=== PATIENT | male | born 1970 ===

== ENCOUNTER 2018-03-25 08:14 | Outpatient (CLI) | payer OTHER ==
[~2018-03-25] VITALS: Ht 180.3 cm; Wt 136.1 kg
== END 2018-03-25 10:04 | disposition home or self-care (01) ==
LOC: OFIC 805 08:14
DX: J32.8 Other chronic sinusitis (principal); R09.81 Nasal congestion; J30.89 Other allergic rhinitis; R05 Cough

== ENCOUNTER 2021-10-20 11:16 | Outpatient (CLI) | payer OTHER | END 2021-10-20 11:22 | disposition home or self-care (01) | LOC: RAD 11:16 | PROVIDERS: ATTEND Surgery | DX: R19.4 Change in bowel habit (principal); C18.2 Malignant neoplasm of ascending colon ==

== ENCOUNTER → 2021-10-21 11:52 | Outpatient (CLI) | payer OTHER | END | disposition home or self-care (01) | LOC: LAB 11:52 | PROVIDERS: ATTEND Radiology Diagnostic Radiology | DX: C18.2 Malignant neoplasm of ascending colon (principal) ==

== ENCOUNTER 2021-10-24 08:45 | Outpatient (CLI) | payer OTHER | END 2021-10-24 08:46 | disposition home or self-care (01) | LOC: TOM 08:45 | PROVIDERS: ATTEND Surgery | DX: R19.4 Change in bowel habit (principal); C18.2 Malignant neoplasm of ascending colon ==

== ENCOUNTER 2021-11-04 10:00 | Inpatient (IN) | payer OTHER ==
[~2021-11-04] VITALS: Ht 180.3 cm; Wt 143.8 kg
[2021-11-04] MEDS ORDERED: DIOVAN320 MG PO (13:32)
[2021-11-07] MEDS ORDERED: VALSARTAN-HCTZ1 EAC3 (11:25)
[2021-11-09] MEDS ORDERED: INTESTINEX680 M1 PO (10:29)
[2021-11-09] MEDS ORDERED: LEVSIN/SL0.125 MG SL (10:29)
== END 2021-11-09 22:31 | disposition home or self-care (01) | DRG 331 ==
LOC: O/R 11-06 09:10 → SURH 11-06 10:00
PROVIDERS: ADMIT Surgery; ATTEND Surgery
PROC: 0DTF4ZZ Resection of Right Large Intestine, Percutaneous Endoscopic Approach (ICD-10-PCS; 2021-11-06)
PROC: 07TC4ZZ Resection of Pelvis Lymphatic, Percutaneous Endoscopic Approach (ICD-10-PCS; principal; 2021-11-06 14:00)
DX: D12.0 Benign neoplasm of cecum (principal); D36.0 Benign neoplasm of lymph nodes

== ENCOUNTER 2023-05-07 10:33 | Outpatient (CLI) | payer OTHER ==
[~2023-05-07 10:33] MED LIST: DIOVAN320 MG PO; INTESTINEX680 M1 PO; LEVSIN/SL0.125 MG SL; VALSARTAN-HCTZ1 EAC3
== END 2023-05-07 10:49 | disposition home or self-care (01) ==
LOC: RAD 10:33
DX: M77.31 Calcaneal spur, right foot (principal); M76.61 Achilles tendinitis, right leg; S86.001A Unspecified injury of right Achilles tendon, initial encounter

== ENCOUNTER 2025-06-05 08:04 | Outpatient (CLI) | payer OTHER | END 2025-06-05 08:06 | disposition home or self-care (01) | LOC: TOM 08:04 | DX: R74.8 Abnormal levels of other serum enzymes (principal); K85.00 Idiopathic acute pancreatitis without necrosis or infection ==